=== PATIENT | male | born 1980 | race Caucasian/White ===

== ENCOUNTER 2021-03-08 11:35 | Emergency (ER) | payer OTHER ==
[~2021-03-08] VITALS: Ht 182.9 cm; Wt 140.6 kg
[2021-03-08] MEDS ORDERED: LISINOPRIL20 MG PO (11:45)
[2021-03-08] MEDS ORDERED: PREDNISONE50 MG PO (11:59)
[2021-03-08] MEDS ORDERED: HYDROCODON-ACE1 EAC7 PO (11:59)
[2021-03-08] MEDS ORDERED: FLEXERIL PO (11:59)
[2021-03-08 12:07] VITALS: BP 150/102
== END 2021-03-08 12:08 | disposition home or self-care (01) ==
LOC: M.ERS 11:35
DX: M54.31 Sciatica, right side (principal); I10 Essential (primary) hypertension